=== PATIENT | female | born 1965 | race Two or more races ===

== ENCOUNTER → 2016-08-15 | Outpatient (CLI) | payer OTHER ==
--- NOTE | ~2016-08-15 | MY11 ---
[facility] A Service of [facility] RADIOLOGY TEXT RESULTS PATIENT: MIGUEL ANGEL BATISTA [facility]: [facility] : 61 UNIT #: [id number] AGE: [address]: MERT LEÓN APRN SEX: F ORDER DR: [id number] [facility] [address] [place], [place] [address] [id number] O MR#: [id number] Acc #: [id number] NAME: MIGUEL ANGEL BATISTA : 1965 SEX: F STUDY DATE/TIME: 08/15/2016 10:49 UNIT: [facility] ROOM: STUDY DESCRIPTION: MY Mammogram Screening Dig Rocael Attending Physician: Yonatan León Aprn Referring Physician: Yonatan León Aprn Ordering Physician: Yonatan León Aprn Primary Care Physician: Jovany Dawson M.D. MEDICAL IMAGING REPORT This report is preliminary unless electronic signature is present EXAM Digital screening mammogram 08/15/2016. HISTORY 51-year-old woman, no risk elevation. Annual screening. COMPARISON Outside mammograms 08/22/2008, 05/21/2012, 09/03/2013, 10/02/2015 FINDINGS Digital imaging of each breast was completed utilizing a two-view examination of each breast in craniocaudal and mediolateral-oblique projections. Review and interpretation of digital mammograms include a second review in conjunction with FDA-approved CAD device. There is a normal parenchymal presentation bilaterally consistent with the patient's age. There are no breast masses imaged and no parenchymal asymmetry is visualized. There are no suspicious microcalcifications and I see no focal architectural disturbance. IMPRESSION Negative screening digital mammogram. One-year followup recommended. Patients over the age of 40 are entered into a reminder system with target due date for the next mammogram. A result letter will also be sent to the patient. BIRADS: 1 Negative Dictated by... Ramírez Fuentes M.D. [facility] A Service of [facility] RADIOLOGY TEXT RESULTS PATIENT: MIGUEL ANGEL BATISTA LOCATION: [facility] : 61 UNIT #: [id number] AGE: [address]: MERT LEÓN APRN SEX: F ORDER DR: THIS IS AN ELECTRONICALLY VERIFIED REPORT Ramírez Fuentes M.D. at 08/19/2016 8:09 AM Obie TD: 08/16/2016 15:42 JOB #: [id number] MEDICAL IMAGING REPORT Page 1 of 1 COPY
== END | disposition home or self-care (01) ==
LOC: CWCC 10:26
DX: Z12.31 Encounter for screening mammogram for malignant neoplasm of breast (principal)
CPT/HCPCS: G0202